=== PATIENT | male | born 1955 | race Caucasian/White ===

== ENCOUNTER 2018-01-08 05:11 | Inpatient (IN) | payer OTHER ==
[2017-12-16 13:07] VITALS: BMI 37.0
--- NOTE | 2017-12-23 09:28 | PAT Medication Instructions ---
Service Date Dec 23, 2017. Current Home Medication List Acetaminophen (Tylenol), 1,000 MG PO UD PRN for Pain Aspirin (Aspirin Ec), 81 MG PO QAM Lisinopril (Prinivil), 20 MG PO QAM Lovastatin (Mevacor), HS Metformin Hcl (Glucophage), 500 MG PO BIDM Nabumetone (Nabumetone), 1 TAB PO BID PRN for Pain Omeprazole Magnesium (Prilosec Otc), 40 MG PO QAM Medication Instructions For Your Scheduled Surgery -Check with your surgeon for instructions for: Nabumetone (Nabumetone), 1 TAB PO BID PRN for Pain - Hold the following medications the morning of surgery: Lisinopril (Prinivil), 20 MG PO QAM Metformin Hcl (Glucophage), 500 MG PO BIDM - Take the following medications the morning of surgery with a sip of water: Acetaminophen (Tylenol), 1,000 MG PO UD PRN for Pain (if needed, may be taken up to four hours before surgery) Aspirin (Aspirin Ec), 81 MG PO QAM Omeprazole Magnesium (Prilosec Otc), 40 MG PO QAM - Take the following medications as scheduled the night before surgery: Acetaminophen (Tylenol), 1,000 MG PO UD PRN for Pain (if needed) Lovastatin (Mevacor), HS Metformin Hcl (Glucophage), 500 MG PO BIDM If you have any questions please call us at [phone] or [phone] or [phone]
--- NOTE | 2018-01-07 14:18 | HISTORY & PHYSICAL EXAMINATION ---
DATE OF ADMISSION: 01/08/2018 CHIEF COMPLAINT: Right knee pain. HISTORY OF PRESENT ILLNESS: The patient is a 62-year-old male with known osteoarthritis about his right knee. He limits his anti-inflammatory use due to history of type 2 diabetes, due to his kidney function. He has progressive pain and disability with activities of daily living including pain with prolonged weightbearing and standing activities. He has difficulty with any kneeling, bending, or squatting activities. Due to ongoing pain and disability, he now desires to proceed with right total knee arthroplasty. PAST MEDICAL HISTORY: Hypertension, hypercholesterolemia, type 2 diabetes, acid reflux, hiatal hernia, obesity. PAST SURGICAL HISTORY: Back surgery, tonsillectomy. MEDICATIONS: Nabumetone 500 mg twice daily, metformin 500 mg twice daily, lisinopril 10 mg daily, Prilosec OTC 20 mg daily, aspirin 81 mg daily. ALLERGIES: No known drug allergies. SOCIAL HISTORY AND REVIEW OF SYSTEMS: Noncontributory. PHYSICAL EXAMINATION: GENERAL: Well-nourished, well-developed male who appears his stated age. HEENT: Normocephalic, atraumatic, extraocular movements intact, oropharynx pink and moist. NECK: Supple without adenopathy. LUNGS: Clear to auscultation bilaterally. HEART: Regular rate and rhythm. ABDOMEN: Soft, nontender, nondistended, obese. EXTREMITIES: The upper extremity within normal limits. The right knee is neutrally aligned. His range of motion is from 0 to 125 degrees. He has pain primarily about the medial compartment. X-RAYS: X-rays were reviewed. He has a slight varus aligned knee. He has bone on bone arthritis of the medial compartment with near complete loss of the joint space. ASSESSMENT: Right knee degenerative joint disease. PLAN: Risks versus benefits were discussed, consent was obtained. The patient's primary care physician is Dr. De La Cruz. We will proceed with right total knee arthroplasty as indicated.
[2018-01-08] VITALS (8 sets, daily range): BP systolic 136–162; BP diastolic 74–85; PULSE 63–82; TEMP 36.8; O2SAT 91–98; Ht 177.8 cm; Wt 118.2 kg
[~2018-01-08] VITALS: Ht 177.8 cm; Wt 118.2 kg
[~2018-01-08 05:11] MED LIST: ACET-1256 PO; ASPI81TA28 PO; GLC/500 PO; LISI20TA3 PO; LOVA40TA43; OMEP20TA14 PO; RLF500 PO
[2018-01-08] MEDS ORDERED: GABAPENTIN 300 MG CAP PO SCH (06:00)
[2018-01-08] MEDS ORDERED: ACETAMINOPHEN 500 MG TAB PO SCH (06:00)
[2018-01-08] MEDS ORDERED: FAMOTIDINE 20 MG TAB PO SCH (06:00)
[2018-01-08] MEDS ORDERED: ROPIVACAINE 5MG/ML 30 ML 150 MG, BUPIVACAINE 0.5% MPF INJ 30 ML, EpINEphrine HCL INJ 0.... INFIL SCH ×8 (06:00)
[2018-01-08] MEDS ORDERED: CeleBREX 200 MG CAP PO SCH (06:00)
[2018-01-08] MEDS ORDERED: DEXAMETHASONE 4 MG TAB PO SCH (06:00)
[2018-01-08] MEDS ORDERED: LACTATED RINGER'S 1000ML 1,000 ML IV SCH (06:00)
[2018-01-08] MEDS ORDERED: CEFAZOLIN 2000MG IV PUSH 15 ML IV SCH (06:00)
[2018-01-08] MEDS ORDERED: LACTATED RINGER'S 1000ML 500 ML IV SCH (06:00)
[2018-01-08] MEDS ORDERED: METOCLOPRAMIDE HCL 10 MG TAB PO SCH (06:00)
[2018-01-08] MEDS: TRANEXAMIC ACID INJ 1,000 MG x 2 Bags IV SCH ×4 (06:30→07:30)
[2018-01-08] MEDS ORDERED: BUPIVACAINE 0.5 % 5 MG/1 ML PF 10ML VIAL ONE (06:33)
[2018-01-08] MEDS ORDERED: ROPIVACAINE 0.5% 5 MG/ML 30 ML VIAL ONE (06:33)
[2018-01-08] MEDS ORDERED: PHENYLEPHRINE 100MCG/ML 5ML SYR IV PRN (06:45)
[2018-01-08] MEDS ORDERED: FENTANYL CITRATE INJ 50 MCG/1 ML 2 ML VIAL IV PRN (06:45)
[2018-01-08] MEDS ORDERED: EpHEDrine SULFATE INJ 50 MG/ML AMP IV PRN (06:45)
[2018-01-08] MEDS ORDERED: ATROPINE SULFATE 0.1 MG/ML 5ML SYR IV PRN (06:45)
[2018-01-08] MEDS ORDERED: HYDROmorphone INJ 1 MG/ML SYR IV PRN (06:45)
[2018-01-08] MEDS ORDERED: ONDANSETRON INJ 2 MG/ML 2 ML VIAL IV PRN (06:45)
[2018-01-08] MEDS ORDERED: PROMETHAZINE HCL INJ 12.5 MG in SODIUM CHLORIDE 0.9% 50ML 50 ML IV PRN (06:45)
[2018-01-08] MEDS ORDERED: ORTHO JOINT ANESTHETIC ONE (07:00)
[2018-01-08] MEDS ORDERED: POVIDONE-IODINE OP SOLN 30 ML BTL ONE (07:00)
[2018-01-08] MEDS ORDERED: BACITRACIN 50000 UNIT VIAL ONE (07:00)
[2018-01-08] MEDS ORDERED: MIDAZOLAM HCL 1 MG/ML 2ML VIAL ONE ×2 (07:03)
[2018-01-08] MEDS ORDERED: LIDOCAINE HCL 2% 2 ML VIAL (20MG/ML) ONE (07:03)
[2018-01-08] MEDS ORDERED: PROPOFOL IV EMULSION 10 MG/ML 20 ML VIAL ONE (07:03)
--- NOTE | 2018-01-08 07:12 | History & Physical Bridge Note ---
H&P Re-Evaluation Bridge Note: I have examined the patient, reviewed the History & Physical and in the interval since the performance of the History & Physical I have noted the following changes of clinical significance: No changes noted
[2018-01-08] MEDS ORDERED: FENTANYL CITRATE INJ 50 MCG/1 ML 2 ML VIAL ONE ×3 (08:03→08:49)
[2018-01-08] MEDS ORDERED: DEXAMETHASONE SOD INJ 4 MG/ML VIAL ONE (08:28)
[2018-01-08] MEDS ORDERED: CEFAZOLIN SOD 1 GM VIAL ONE (08:28)
[2018-01-08] MEDS ORDERED: ONDANSETRON INJ 2 MG/ML 2 ML VIAL ONE (08:28)
[2018-01-08] MEDS ORDERED: SODIUM CHLORIDE 0.9% INJ 10 ML VIAL ONE (08:28)
--- NOTE | 2018-01-08 09:04 | [facility] Post Operative Brief Note ---
Immediate Operative Summary Operative Date Jan 08, 2018. Pre-Operative Diagnosis Right knee degenerative joint disease Post-Operative Diagnosis Right knee degenerative joint disease Procedure(s) Performed Right total knee arthroplasty Surgeon Dr. Pearce Web Support Engineer Surgeon(s) Clement Escalante PA-C Estimated Blood Loss 10cc Findings Consistent with Post-Op Diagnosis Specimens A. Right knee bone and tissue Anesthesia Type MAC Spinal Regional Complication(s) none Disposition Accompanied Pt To Recover: no Overlapping Procedure I was present for: the critical portions of procedure. I was immediately available: during the entire case
[2018-01-08] MEDS: SODIUM CHLORIDE 0.9% 1000ML 1,000 ML IV SCH ×2 (09:44→21:36)
[2018-01-08] MEDS ORDERED: MAGNESIUM HYDROXIDE SUSP 30 ML UDC PO PRN (09:45)
[2018-01-08] MEDS ORDERED: ALUMINUM/MAGNESIUM/SIMETH (MAALOX MAX) 30 ML UDC PO PRN (09:45)
[2018-01-08] MEDS ORDERED: BISACODYL 10 MG SUPP PR PRN (09:45)
[2018-01-08] MEDS ORDERED: MoRPHine SULFATE 2 MG/ML CARP IV PRN (09:45)
[2018-01-08] MEDS ORDERED: OXYCODONE HCL IR 5 MG TAB (IMMEDIATE RELEASE) PO PRN (09:45)
[2018-01-08] MEDS ORDERED: TRAMADOL HCL 50 MG TAB PO PRN (09:45)
--- NOTE | 2018-01-08 10:12 | DIAGNOSTIC IMAGING REPORT ---
R KNEE 1 OR 2 VIEWS ROUTINE HISTORY: 62 years-old Male AP/LATERAL IN PACU RIGHT KNEE right knee total joint arthroplasty. Degenerative joint disease COMPARISON: Knee radiographs 10/11/2009 TECHNIQUE: 2 views of the right knee FINDINGS: Postoperative changes from right knee total joint arthroplasty. Alignment is satisfactory. Anterior midline skin hari are noted. No acute fracture, dislocation or opaque foreign body. Expected postsurgical soft tissue swelling and deep tissue air. Peripheral arterial calcifications are noted. IMPRESSION: Right knee total joint arthroplasty with satisfactory alignment. The above report was generated using voice recognition software. It may contain grammatical, syntax or spelling errors. Electronically signed by: Sammy Bailey M.D. 01/08/2018 10:10 AM Dictated Date/Time: 01/08/2018 10:08 AM
--- NOTE | 2018-01-08 10:21 | Anesthesiology Progress Note ---
Anesthesia Post Op Note Date & Time Jan 08, 2018 at 10:21 Vital Signs Pain Intensity: 0 Vital Signs Past 12 Hours Date Time Temp Pulse Resp B/P (MAP) Pulse Ox O2 Delivery O2 Flow Rate FiO2 01/08/18 10:10 76 18 157/85 93 Nasal Cannula 4 01/08/18 10:00 75 18 162/89 93 Oxymask 5 01/08/18 09:50 83 18 148/94 94 Oxymask 5 01/08/18 09:43 36.1 91 20 159/89 94 Oxymask 10 01/08/18 05:49 36.8 75 20 152/85 94 Room Air Notes Mental Status: alert / awake / arousable, participated in evaluation Pt Amnestic to Procedure: Yes Nausea / Vomiting: adequately controlled Pain: adequately controlled Airway Patency, RR, SpO2: stable & adequate BP & HR: stable & adequate Hydration State: stable & adequate Anesthetic Complications: no major complications apparent
[2018-01-08] MEDS ORDERED: DEXTROSE 50% 50 ML SYR IV PRN (11:30)
[2018-01-08] MEDS ORDERED: GLUCAGON FOR INJ 1 MG VIAL IM PRN (11:30)
[2018-01-08] MEDS ORDERED: CARBOHYDRATES FOR HYPOGLYCEMIA PO PRN (11:30)
[2018-01-08] MEDS ORDERED: GLUCOSE 40% GEL 15 GM TUBE PO PRN (11:30)
[2018-01-08] MEDS ORDERED: GLUCOSE 10 TABS/TUBE PO PRN (11:30)
--- NOTE | 2018-01-08 12:15 | OPERATIVE REPORT ---
DATE OF OPERATION: 01/08/2018 PREOPERATIVE DIAGNOSIS: Osteoarthritis, right knee. POSTOPERATIVE DIAGNOSIS: Osteoarthritis, right knee. PROCEDURE: Right total knee arthroplasty. SURGEON: Dr. Pearce. ARCH SUPPORT TECHNICIAN: AMAURI Ruff ANESTHESIA: Spinal. COMPLICATIONS: None. IMPLANTS USED: Femoral size 5, tibia size 5, tibial poly 9, patella size 39. OPERATION AND FINDINGS: Following induction of spinal anesthesia, the patient's right leg was prepped and draped in the usual sterile manner. Limb was exsanguinated with an Esmarch bandage and tourniquet was inflated to 350 mmHg. A longitudinal incision was made anteriorly. Subcutaneous tissue was sharply dissected. Electrocautery was used for hemostasis. Prepatellar bursa was incised and median parapatellar incision was performed. Patella was everted and the knee was flexed. Fat pad was removed to aid in visualization and the anterior and posterior cruciate ligaments were removed. The medial face of the tibia was cleared of soft tissue first with a Bovie and a Alfaro elevator. This tissue was retracted posteriorly using a blunt Hohmann. A Lou retractor was used to expose the synovium above on the anterior aspect of the femur and this was removed down to bone. The PSI guide was placed on the distal femur and two pins were placed anteriorly and kept in position and two additional pins were placed distally and removed. The distal femoral cutting block was placed in position and the distal femoral cut was used in the +0 setting. Next, the cutting block was removed and the femoral size 5 block was placed in the distal end of the femur. Care was taken to ensure appropriate external rotation and feeler gauge was used to ensure no notching would occur. The femoral block was centered on the distal femur and in the medial and lateral direction and was fixed using two bone screws. The gold pins were then removed. The oscillating saw was used to create the bone cuts and the distal femoral cutting block was removed and the reciprocating saw was used to further trim the femoral cuts as well as a deep in the area for the trochlear groove. Next, posterior condyle remnants were removed. Following this, a meniscal clamp and knife were utilized to remove the anterior portion of both medial and lateral meniscus. The proximal tibia PSI guide was placed into position and the proximal tibial cutting guide was screwed into position. The extra medullary alignment guide was utilized to ensure appropriate alignment. The proximal tibia was cut and the proximal tibial cutting block was removed and this bone fragment was removed. The appropriate guide was used to perform the notch cut on the distal femur and a lamina aircraft tool maker and a cochlear knife were utilized to finish both medial and lateral meniscectomies to remove any remnants of the posterior or anterior cruciate ligaments. Following this, the distal femoral component was impacted into position and blunt Sang was used to sublux the tibia anteriorly. The proximal tibia was sized and a size 5 tibial tray was chosen as the size to be used. This was put into position and appropriate external rotation and a double check with extramedullary alignment guide was performed. The canal for the tibial stem was prepared first with a 17 mm drill and then the punch and a mallet and the trial tibial poly was placed. A tibial poly 9 was chosen the size to be used. It was brought to extension and the patella was prepared with the patellar reamer. A patella size 39 component was chosen the size to be used. The trial component was placed and knee was taken through a full range of motion and there was found to be no lateral subluxation of the tibia. No lateral release was required. The trials were all removed. The final components were obtained and assembled. Cement was mixed. The knee was thoroughly irrigated and the ortho mix was injected about the knee joint. The final components were cemented into position. After thoroughly suctioning and drying the bone ends, all excess cement was removed. The knee was held in extension while the cement hardened. The wound was irrigated and closed over a Hemovac drain. #1 Vicryl was used to close the extensor mechanism. Subcutaneous tissues closed using 0 Dexon. Skin was closed with hari. Sterile dressing of Adaptic, 4 x 4's, sterile Webril, and Tee was applied. The patient tolerated the procedure well. Due to the complex nature of the procedure, the entire surgery was performed with the operational assistance of Clement Escalante PA-C. The grants and contracts assistant, under direct supervision, was involved in the actual performance of all aspects of the surgical procedure including hemostasis, tissue retraction and incision, instrument management, patient positioning, and wound closure. DISPOSITION: Recovery room, stable. I attest to the content of the Intraoperative Record and any orders documented therein. Any exception s are noted below.
[2018-01-08] MEDS: FERROUS GLUCONATE 324 MG TAB PO SCH ×2 (12:41→17:36)
[2018-01-08] MEDS: INSULIN ASPART 100 UNITS/ML 3 ML PEN SC SCH ×3 (12:43→21:38)
[2018-01-08] MEDS: ACETAMINOPHEN 500 MG TAB PO SCH ×2 (13:41→21:40)
[2018-01-08] MEDS: CEFAZOLIN IV 2,000 MG in SYRINGE 0 ML IV SCH (15:52)
[2018-01-08] MEDS: CeleBREX 200 MG CAP PO SCH (20:16)
[2018-01-08] MEDS: DOCUSATE SODIUM 100 MG CAP PO SCH (20:16)
[2018-01-08] MEDS: SENNA 8.6 MG TAB PO SCH (20:16)
[2018-01-08] MEDS: ASPIRIN 81 MG ECTAB PO SCH (20:16)
[2018-01-09] MEDS: CEFAZOLIN IV 2,000 MG in SYRINGE 0 ML IV SCH (00:12)
[2018-01-09 02:50] VITALS: BP 125/65; PULSE 76; TEMP 37.1; O2SAT 97
[2018-01-09] MEDS: ACETAMINOPHEN 500 MG TAB PO SCH ×3 (05:21→21:33)
[2018-01-09] MEDS: SODIUM CHLORIDE 0.9% 1000ML 1,000 ML IV SCH (05:22)
[2018-01-09 06:24] LABS: HEMATOCRIT 36.8 % (42-52); HEMOGLOBIN 12.5 g/dL (14.0-18.0); MEAN CELL VOLUME 86.8 fL (80-100); MEAN CORPUSCULAR HEMOGLOBIN 29.5 pg (25-34); MEAN PLATELET VOLUME 10.1 fL (7.4-10.4); PLATELET COUNT 243 K/uL (130-400); RED CELL DISTRIBUTION WIDTH CV 12.7 % (11.5-14.5); RED CELL DISTRIBUTION WIDTH SD 40.8 fL (36.4-46.3); WHITE BLOOD COUNT 21.62 K/uL (4.8-10.8)
[2018-01-09 06:59] LABS: CALCIUM 8.1 mg/dl (8.5-10.1); POTASSIUM 4.4 mmol/L (3.5-5.1)
[2018-01-09 07:21] VITALS: BP 153/90; PULSE 73; TEMP 36.6; O2SAT 96
--- NOTE | 2018-01-09 07:47 | Anesthesiology Progress Note ---
Anesthesia Post Op Note Date & Time Jan 09, 2018 at 07:47 Vital Signs Pain Intensity: 0.0 Vital Signs Past 12 Hours Date Time Temp Pulse Resp B/P (MAP) Pulse Ox O2 Delivery O2 Flow Rate FiO2 01/09/18 07:21 36.6 73 18 153/90 (111) 96 Room Air 01/09/18 02:50 37.1 76 16 125/65 (85) 97 Room Air 01/08/18 23:15 Room Air 01/08/18 22:48 36.8 82 17 147/76 (99) 91 Room Air Notes Mental Status: alert / awake / arousable, participated in evaluation Pt Amnestic to Procedure: Yes Nausea / Vomiting: adequately controlled Pain: adequately controlled Airway Patency, RR, SpO2: stable & adequate BP & HR: stable & adequate Hydration State: stable & adequate Anesthetic Complications: no major complications apparent
--- NOTE | 2018-01-09 07:48 | Orthopedic Progress Note ---
Orthopedic Progress Note Date of Service Jan 09, 2018. Subjective Post OP Day: 1 Reports: feeling well Objective N/V intact, dressing C/D/I (Hemovac in place), toes mobile Date Time Temp Pulse Resp B/P (MAP) Pulse Ox O2 Delivery O2 Flow Rate FiO2 01/09/18 07:21 36.6 73 18 153/90 (111) 96 Room Air 01/09/18 02:50 37.1 76 16 125/65 (85) 97 Room Air 01/08/18 23:15 Room Air 01/08/18 22:48 36.8 82 17 147/76 (99) 91 Room Air 01/08/18 19:01 36.8 69 18 136/78 (97) 98 Room Air 01/08/18 15:20 Nasal Cannula 2.0 01/08/18 13:30 66 16 144/75 (98) 95 01/08/18 12:29 73 18 145/74 (97) 93 01/08/18 11:30 70 18 158/75 (102) 95 01/08/18 11:05 63 18 162/76 (104) 93 01/08/18 10:30 93 Nasal Cannula 2.0 01/08/18 10:30 36.8 72 18 138/76 (96) 93 Nasal Cannula 2.0 01/08/18 10:30 93 Nasal Cannula 2.0 01/08/18 10:20 36.3 72 18 164/80 93 Nasal Cannula 4 01/08/18 10:10 76 18 157/85 93 Nasal Cannula 4 01/08/18 10:00 75 18 162/89 93 Oxymask 5 01/08/18 09:50 83 18 148/94 94 Oxymask 5 01/08/18 09:43 36.1 91 20 159/89 94 Oxymask 10 Laboratory Results 24 Hours: Test 01/09/18 06:13 Hematocrit 36.8 % Hemoglobin 12.5 g/dL Assessment & Plan Assessment: 62 yo male stable POD #1 s/p right TKA Plan: 1. Med management 2. DVT prophylaxis- ASA, SCDs 3. PT/OT 4. D/C planning- home w/ HH
--- NOTE | 2018-01-09 08:14 | Discharge Instructions ---
Discharge Instructions Date of Service Jan 09, 2018. Admission Reason for Admission: Right Knee Osteoarthritis Discharge Discharge Diagnosis / Problem: Right knee arthritis Discharge Goals Goal(s): Decrease discomfort, Improve function Activity Recommendations Activity Limitations: as noted below Weightbearing Status: Right weightbearing (as tolerated) . Instructions / Follow-Up Instructions / Follow-Up ACTIVITY RECOMMENDATIONS: SELF CARE INSTRUCTIONS AFTER TOTAL KNEE REPLACEMENT A. You may need to continue a physical therapy program after discharge from the hospital. There are several options available to you. Your doctor will assist you in selecting the best one for you. 1. An out-patient facility 2 to 3 times a week for therapy or home therapy. 2. Continue working on all exercises taught to you in the hospital. Your goals should be to increase bending of your knee to 90 degrees and beyond and to fully straighten your knee. B. You may progress at your own pace from walking with a walker or crutches to a cane; then to no assistive devices. C. Make walking a part of your daily routine. Be up as much as comfortable with rest periods throughout the day. Rest with leg elevation is very important. Use the ice wrap frequently for the first 3-4 weeks. D. There are no restrictions on activities. You may ride in a car, shop, participate in director home and all social activities. E. Wear the long elastic stockings (MARISA hose) 20 hours a day for 2 weeks after surgery. They can be removed several times a day for laundering and for a bath. F. You may shower, no tub baths until cleared by your doctor. SPECIAL CARE INSTRUCTIONS: VERY IMPORTANT TO READ AND REVIEW A. There are a few signs you need to watch for after you are home. Call [facility] if you notice any of the followin. Increased severe knee pain. Some pain is expected especially when you exercise. 2. Increased swelling in your leg or knee; pain or swelling of the calf muscle in either lower leg. 3. Any fluid drainage from the incision. 4. Shortness of breath or chest pain. B. Please call [facility] at if you have any concerns or questions about your operation or recovery. The doctor or his nurse will return your call promptly. C. You must take antibiotics before dental work, bladder, bowel or other surgery. Your doctor will provide you with a permanent care to carry describing this precaution. IMPORTANT: * REMEMBER TO TAKE ASPIRIN, 81 MG, TWICE DAILY FOR 4 WEEKS UNLESS OTHERWISE DIRECTED. THIS IS YOUR BLOOD THINNER. * HIGH RISK PATIENTS MAY BE PRESCRIBED A STRONGER BLOOD THINNER. THIS WILL BE PROVIDED AT DISCHARGE. * CALL IF INCREASED PAIN, REDNESS, DRAINAGE OR FEVER GREATER THAT 101. * WEAR MARISA HOSE 20 HOURS PER DAY FOR 2 WEEKS. * YOU MAY HAVE A LARGE BAND-AID LIKE DRESSING (SILVERON). THIS WILL REMAIN ON YOUR INCISION FOR 7 DAYS, THEN CAN BE REMOVED. IF INCISION IS LEAKING THROUGH DRESSING, CALL THE OFFICE . Zip Skin Closure You have a Zipline Closure System. As noted below, this keeps your incision closed. Change the dressing daily. Keep the wound covered with a dressing as it has the potential to snag on your clothing. The Zipline will remain on for a total of 2 weeks. Do not remove it! You will be given instructions by nursing staff at the time of discharge to care for your Zip Closure System. This devices uses plastic straps to keep your incision closed and protected throughout your recovery. If you have any questions please refer to these instructions first. FOLLOW UP VISIT: If appointment is not already scheduled: Please call [facility] to make a follow-up appointment for 2 weeks after your surgery at . Current Hospital Diet Patient's current hospital diet: Diabetes Type 2 Diet Discharge Diet Recommended Diet: Diabetes Type 2 Diet Procedures Procedures Performed: Right total knee arthroplasty Pending Studies Studies pending at discharge: no Medical Emergencies . Who to Call and When: Medical Emergencies: If at any time you feel your situation is an emergency, please call 911 immediately. . Non-Emergent Contact Non-Emergency issues call your: Surgeon Call Non-Emergent contact if: temperature is above 101.5, your pain is not controlled, wound has increased drainage, wound has increased redness . "Provider Documentation" section prepared by Shad Villegas PA-C. . [place] Drug Monitoring Program Search Results: patient reviewed within database, no issues identified
[2018-01-09] MEDS: FERROUS GLUCONATE 324 MG TAB PO SCH ×3 (08:33→18:07)
[2018-01-09] MEDS: ASPIRIN 81 MG ECTAB PO SCH ×2 (08:33→20:13)
[2018-01-09] MEDS: CeleBREX 200 MG CAP PO SCH ×2 (08:33→20:12)
[2018-01-09] MEDS: DOCUSATE SODIUM 100 MG CAP PO SCH ×2 (08:33→20:11)
[2018-01-09] MEDS: MULTIVITAMIN TAB PO SCH (08:34)
[2018-01-09] MEDS: PANTOprazole SOD 40 MG TAB PO SCH (08:34)
[2018-01-09] MEDS: LISINOPRIL 20 MG TAB PO SCH (08:34)
[2018-01-09] MEDS: INSULIN ASPART 100 UNITS/ML 3 ML PEN SC SCH ×4 (08:49→21:36)
[2018-01-09 11:15] VITALS: BP 154/77; PULSE 78; TEMP 36.5; O2SAT 93
[2018-01-09 15:34] VITALS: BP 133/74; PULSE 73; TEMP 37; O2SAT 96
[2018-01-09] MEDS: METFORMIN HCL 500 MG TAB PO SCH (18:07)
[2018-01-09] MEDS: SENNA 8.6 MG TAB PO SCH (20:12)
[2018-01-10 00:05] VITALS: BP 133/68; PULSE 82; TEMP 36.8; O2SAT 97
[2018-01-10] MEDS: ACETAMINOPHEN 500 MG TAB PO SCH (05:46)
[2018-01-10 06:39] VITALS: BP 119/72; PULSE 76; TEMP 37; O2SAT 95
[2018-01-10 07:45] VITALS: O2SAT 95
[2018-01-10 07:49] VITALS: BP 119/72; PULSE 76; TEMP 37; O2SAT 95
[2018-01-10] MEDS: INSULIN ASPART 100 UNITS/ML 3 ML PEN SC SCH (08:02)
[2018-01-10] MEDS: LISINOPRIL 20 MG TAB PO SCH (08:03)
[2018-01-10] MEDS: FERROUS GLUCONATE 324 MG TAB PO SCH (08:03)
[2018-01-10] MEDS: MULTIVITAMIN TAB PO SCH (08:03)
[2018-01-10] MEDS: PANTOprazole SOD 40 MG TAB PO SCH (08:03)
[2018-01-10] MEDS: ASPIRIN 81 MG ECTAB PO SCH (08:04)
[2018-01-10] MEDS: CeleBREX 200 MG CAP PO SCH (08:04)
[2018-01-10] MEDS: METFORMIN HCL 500 MG TAB PO SCH (08:04)
[2018-01-10] MEDS: DOCUSATE SODIUM 100 MG CAP PO SCH (08:07)
--- NOTE | 2018-01-10 08:38 | Orthopedic Progress Note ---
Orthopedic Progress Note Date of Service Jan 10, 2018. Subjective Post OP Day: 2 Reports: feeling well Objective N/V intact, dressing C/D/I, toes mobile Date Time Temp Pulse Resp B/P (MAP) Pulse Ox O2 Delivery O2 Flow Rate FiO2 01/10/18 07:49 37.0 76 18 95 Room Air 01/10/18 07:45 95 Room Air 01/10/18 06:39 37.0 76 18 119/72 (88) 95 Room Air 01/10/18 00:05 36.8 82 18 133/68 (89) 97 Room Air 01/09/18 23:30 Room Air 01/09/18 15:34 37.0 73 16 133/74 (93) 96 Room Air 01/09/18 14:56 Room Air 01/09/18 11:15 36.5 78 18 154/77 (102) 93 01/09/18 08:43 Room Air Assessment & Plan Assessment: 62 yo male stable POD #2 s/p right TKA Plan: 1. Med management 2. DVT prophylaxis- ASA, SCDs 3. PT/OT 4. D/C planning- home w/ HH
[2018-01-10] MEDS ORDERED: CLB200 PO (08:40)
[2018-01-10] MEDS ORDERED: ACET-24 PO (08:40)
[2018-01-10] MEDS ORDERED: ASPI-461 PO (08:40)
[2018-01-10] MEDS ORDERED: RXC5 PO (08:41)
--- NOTE | 2018-01-13 11:59 | DISCHARGE SUMMARY ---
DISCHARGE DIAGNOSIS: Degenerative joint disease, right knee. SECONDARY DIAGNOSES: Hypertension, hypercholesterolemia, diabetes mellitus type 2, gastroesophageal reflux disease, hiatal hernia, and obesity. CONSULTS: None. COMPLICATIONS: None. PROCEDURES: Right total knee arthroplasty performed by Dr. Pearce on 01/08/2018. BRIEF HISTORY: As dictated in the history and physical. HOSPITAL SUMMARY: The patient was admitted on the above-noted date and had the above-noted surgery performed which he tolerated well. On the first postoperative day, he was feeling well and dressings were clean, dry and intact. Toes were mobile. Neurovascular intact and vital signs are stable. He is afebrile. Hemoglobin was 12.5 and he was started on physical therapy protocol and continued on DVT prophylaxis and pain management. By his second postoperative day, he was feeling well and was continued to progress in PT. Dressings were clean, dry and intact. Toes were mobile and vital signs remaining stable. He was doing well and was felt he could be discharged to home with home health services. For further review, please see chart. LAB AND X-RAY DATA: As per chart. DISCHARGE INSTRUCTIONS: The patient was discharged home in satisfactory condition on 01/10/2018. DIET: Diabetic. ACTIVITY: Weightbearing as tolerated, right lower extremity. Follow TKA instruction sheets and special care instructions as noted. Follow up with Dr. Pearce in 2 weeks. The patient to call for appointment if one has not been made for you. DISCHARGE MEDICATIONS: Acetaminophen 1000 mg p.o. q. 8 hours for 14 days, aspirin 81 mg p.o. b.i.d. for 28 days, Celebrex 200 mg p.o. b.i.d. for 30 days, oxycodone 5-10 mg p.o. q. 6 hours p.r.n. pain. Resume home meds as listed. Stop taking original Tylenol dosage, stop taking nabumetone, and after 28 days, resume once daily dosing of your aspirin.
== END 2018-01-10 10:36 | disposition home health service (06) | DRG 470 ==
LOC: C.ACU 05:11 → C.3E 07:00 → ENRESERV 10:11
PROC: 0SRC0J9 Replacement of Right Knee Joint with Synthetic Substitute, Cemented, Open Approach (ICD-10-PCS; principal; 2018-01-08 08:00)
DX: M17.11 Unilateral primary osteoarthritis, right knee (principal); E11.9 Type 2 diabetes mellitus without complications; I10 Essential (primary) hypertension; E78.5 Hyperlipidemia, unspecified; K21.9 Gastro-esophageal reflux disease without esophagitis; E66.9 Obesity, unspecified; Z68.37 Body mass index [BMI] 37.0-37.9, adult

== ENCOUNTER 2021-01-05 10:44 | Inpatient (IN) ==
--- NOTE | 2020-12-11 15:43 | PAT Medication Instructions ---
Medication Instructions Date of Service December 11, 2020 Home Medications aspirin [Aspir-81] 81 mg PO QAM atorvastatin 80 mg PO PM lisinopril 20 mg PO QAM metformin 500 mg PO BID nabumetone [Relafen] 500 mg PO BID omeprazole 20 mg PO BID ASK your surgeon for instructions nabumetone [Relafen] 500 mg PO BID DO NOT take the morning of surgery lisinopril 20 mg PO QAM metformin 500 mg PO BID Take morning of surgery With a small sip of water, OTHERWISE NOTHING TO EAT OR DRINK AFTER MIDNIGHT: aspirin [Aspir-81] 81 mg PO QAM omeprazole 20 mg PO BID Take evening before surgery atorvastatin 80 mg PO PM metformin 500 mg PO BID omeprazole 20 mg PO BID Other Notes If you have any questions please call us at [phone] or [phone] or [phone] or [phone]
--- NOTE | 2020-12-12 15:07 | Anesthesiology Consultation ---
Date of Service December 12, 2020 Assessment & Plan (1) Encounter for pre-operative examination: - COVID screening: Per assessment on 12/12: Travel screen negative, no known COVID-19 positive contacts or current COVID-19 related symptoms. Patient vaccinated. Surgeon arranging preop COVID testing. Awaiting results. - Check BSG AM DOS - S/P Right TKA (01/08/18): unable to get SAB d/t hardware around spine despite multiple attempts (attempted spinal at L3-L4, L4-L5, median and paramedian >unable to pass through hardware, pt s/p fusion T12-L5) > LMA#5 x1 attempt, atraumatic, good seal at [facility] Chart Review Chart Review: Acceptable Risk for Surgery and Patient seen in Pre Admission Testing Teaching & Discussion Pre-Anesthesia Teaching/Discussion Notes: Instructed NPO after midnight before surgery,except medications with 15 cc of water. Medication instructions provided according to the PAT guidelines. History Surgery Operation Date: 01/05/21 11:55 Proposed Procedures p Left Total Knee Arthroplasty - Greg Lazo DO Height/Weight Height: 5 ft 8 in Weight: 118.9 kg Allergies Allergy/AdvReac Type Severity Reaction Status Date / Time No Known Drug Allergies Allergy Unknown none Verified 12/11/20 09:45 Medications Home Medications Medication Instructions Recorded Confirmed Last Taken aspirin [Aspir-81] 81 mg PO QAM 12/11/20 12/11/20 Unknown atorvastatin 80 mg PO PM 12/11/20 12/11/20 Unknown lisinopril 20 mg PO QAM 12/11/20 12/11/20 Unknown metformin 500 mg PO BID 12/11/20 12/11/20 Unknown nabumetone [Relafen] 500 mg PO BID 12/11/20 12/11/20 Unknown omeprazole 20 mg PO BID 12/11/20 12/11/20 Unknown Past Medical History Medical History Diabetes mellitus, type 2 NIDDM GERD (gastroesophageal reflux disease) controlled Hyperlipidemia Hypertension Obesity Osteoarthritis Exercise / Class Metabolic Activity II 4-5 Yardwork/Stairs/Walk up hill Past Surgical History Surgical History History of lumbar fusion History of total right knee replacement Right TKA (01/08/18): unable to get SAB d/t hardware around spine despite multiple attempts (attempted spinal at L3-L4, L4-L5, median and paramedian >unable to pass through hardware, pt s/p fusion T12-L5) > LMA#5 x1 attempt, atraumatic, good seal at [facility] Hx of colonoscopy Hx of esophagogastroduodenoscopy Hx of tonsillectomy Past Anesthesia History No Family Hx of Anesthesia Complications and Other Right TKA (01/08/18): unable to get SAB d/t hardware around spine despite mul tiple attempts (attempted spinal at L3-L4, L4-L5, median and paramedian >unable to pass through hardware, pt s/p fusion T12-L5) > LMA#5 x1 attempt, atraumatic, good seal at [facility] History of PONV No Hx of PONV and Hx of Motion Sickness Social History Smoking Status: Never smoker Do You Dip or Chew Tobacco: No Hx Alcohol Use: No Hx Substance Use: No substance use type: does not use Review of Systems No snoring. Patient denies chest pain, shortness of breath, dyspnea on exertion, fever, chills, cough, wheezing, palpitations. Physical Exam Vital Signs VITALS BP 157/81 P 81 TEMP WNL SP02 94%RA RESP 16 PHYSICAL Full cervical extension range of motion. Full TMJ range of motion. TMD 3.5 finger breaths Mallampati Score 3 Dentition: full dentures upper/lower Lungs: clear throughout to auscultation Cardiac: regular rate and rhythm, no murmurs noted Spine: normal Carotid arteries: negative bruit Extremities: no edema Lab Results Anesthesia Preop Results Results Anesthesia Widget: WBC 9.33 K/uL (4.8-10.8) 12/12/20 Hgb 14.9 g/dL (14.0-18.0) 12/12/20 Hct 43.8 % (42-52) 12/12/20 Plt 240 K/uL (130-400) 12/12/20 Na 141 mmol/L (136-145) 12/12/20 K 4.0 mmol/L (3.5-5.1) 12/12/20 Cl 110 mmol/L (98-107) H 12/12/20 CO2 25 mmol/L (21-32) 12/12/20 BUN 17 mg/dl (7-18) 12/12/20 Creat 0.98 mg/dl (0.6-1.4) 12/12/20 Glucose Level 120 mg/dl (70-99) H 12/12/20 PT 10.2 Seconds (9.0-12.0) 12/12/20 PTT 27.4 Seconds (21.0-31.0) 12/12/20 INR 1.0 (0.9-1.1) 12/12/20 HA1c 6.5 % (4.5-5.6) H 12/12/20 Blood Type B Positive 12/12/20 Antibody Screen NEGATIVE 12/12/20 Testing Electrocardiogram Date: 12/12/20 Normal sinus rhythm at 71 bpm. Inferior infarct (cited on or before 11/23/2017 per gang rider review). Good functional status at PAT visit from same day. Chest X-Ray Date: 12/12/20 FINDINGS: PA and lateral chest radiographs are compared to study dated 12/23/2017. The cardiomediastinal silhouette is unremarkable. There is mild bibasilar atelectasis. The lungs and pleural spaces are otherwise clear. There is no pneumothorax. The bony thorax appears intact. Fusion hardware is noted thoracolumbar junction. Degenerative change and hyperkyphosis is noted in the spine. IMPRESSION: No active disease in the chest.
--- NOTE | 2021-01-03 16:49 | History & Physical Report ---
Date of Service January 03, 2021 Assessment & Plan (1) Osteoarthritis of left knee: Plan: Schedule a left total knee arthroplasty for 01/05/21. All potential risks, benefits, complications, alternatives, and rehab have been discussed with the patient and he wishes to proceed. Plan for aspirin 81 mg twice daily x30 days for postop DVT prophylaxis. History of Present Illness Chief Complaint: Left knee pain Primary Care Provider: Shawn De La Crzu MD This is a patient who been treated conservatively for left knee osteoarthritis for many years. He is failed all conservative management. He had previously had a right total knee arthroplasty with good results. He is currently being set up for a left total knee arthroplasty. Allergies Allergy/AdvReac Type Severity Reaction Status Date / Time No Known Drug Allergies Allergy Unknown none Verified 12/11/20 09:45 Home Medications Medication Instructions Recorded Confirmed Type aspirin 81 mg tablet,delayed 81 mg PO QAM 12/11/20 12/11/20 History release atorvastatin 80 mg tablet 80 mg PO PM 12/11/20 12/11/20 History lisinopril 20 mg tablet 20 mg PO QAM 12/11/20 12/11/20 History metformin 500 mg tablet 500 mg PO BID 12/11/20 12/11/20 History nabumetone 500 mg tablet (Relafen) 500 mg PO BID 12/11/20 12/11/20 History omeprazole 20 mg tablet,delayed 20 mg PO BID 12/11/20 12/11/20 History release Past Med/Surg History Medical History Diabetes mellitus, type 2 NIDDM GERD (gastroesophageal reflux disease) controlled Hyperlipidemia Hypertension Obesity Osteoarthritis Surgical History History of lumbar fusion History of total right knee replacement Right TKA (01/08/18): unable to get SAB d/t hardware around spine despite multiple attempts (attempted spinal at L3-L4, L4-L5, median and paramedian >unable to pass through hardware, pt s/p fusion T12-L5) > LMA#5 x1 attempt, atraumatic, good seal at [facility] Hx of colonoscopy Hx of esophagogastroduodenoscopy Hx of tonsillectomy Social History Smoking Status: Never smoker Second Hand Exposure: No; Hx Alcohol Use: No Hx Substance Use: No Preferred Language: [place] Communication Ability: Effective Information Assurance Manager Required: No Beliefs That Will Affect Care: None Current Living Situation: Spouse Feels Safe at Home: Yes Assistive Devices: Glasses Physical Exam Constitutional: well developed and well nourished; no acute distress ENMT: external ear and nose normal, oropharynx normal Neck: trachea midline, no thyromegaly Respiratory: normal respiratory effort, lungs clear to auscultation Cardiovascular: Rate/Rhythm: regular rate and regular rhythm Gastrointestinal (Abdomen): normal bowel sounds, soft, nontender, no hepatosplenomegaly Musculoskeletal: Knee: + knee ROM with crepitation (Right knee), + joint line tenderness (Right medial lateral joint line) and + Miranda's sign positive (Right); no skin erythema and no ecchymosis Skin: no rashes, warm and dry Trauma: no evidence of skin trauma Neurologic: normal touch/pain/proprioception Psychiatric: A+Ox3, euthymic affect Speech: normal rate/rhythm/volume of speech Lymphatic: no cervical or axillary lymphadenopathy
[~2021-01-05 10:44] MED LIST changes: -ACET-1256 PO; +ACETAMINOPHEN 500 MG TAB PO SCH; -ASPI81TA28 PO; +BUPIVACAINE 0.5 % 5 MG/1 ML PF 10ML VIAL ONE; +CeleBREX 200 MG CAP PO SCH; +FAMOTIDINE 20 MG TAB PO SCH; +GABAPENTIN 300 MG CAP PO SCH; -GLC/500 PO; -LISI20TA3 PO; -LOVA40TA43; +LR 500ML BOLUS, THEN 15ML/HR IV SCH; +METOCLOPRAMIDE HCL 10 MG TABLET PO SCH; -OMEP20TA14 PO; -RLF500 PO; +ROPIVACAINE 0.5% 5 MG/ML 30 ML VIAL ONE; +ROPIVACAINE 0.5% HCL/PF 150 MG, BUPIVACAINE 0.75% MPF 20 ML, EPINEPHrine 30MG/30ML (OR ... INSTIL SCH; +TRANEXAMIC ACID 1,000 MG **IV Intra-op IV SCH; +TRANEXAMIC ACID 1,000 MG **IV Pre-op IV SCH; +ceFAZolin 2000MG 2,000 MG/15 ML SYR IV SCH; +oxyCODONE HCL 10 MG TABCR (OxyCONTIN) PO SCH
--- NOTE | 2021-01-05 11:35 | History & Physical Bridge Note ---
Date of Service January 05, 2021 History & Physical Bridge Note I have examined the patient, reviewed the History & Physical and in the interval since the performance of the History & Physical I have noted the following changes of clinical significance: no changes noted
[2021-01-05] MEDS ORDERED: ATROPINE SULFATE 0.1 MG/ML 10ML SYR IV PRN (12:16)
[2021-01-05] MEDS ORDERED: KETOROLAC 30 MG/ML VIAL IV PRN (12:16)
[2021-01-05] MEDS ORDERED: LABETALOL HCL IV 5 MG/ML 20ML IV PRN (12:16)
[2021-01-05] MEDS ORDERED: ONDANSETRON INJ 2 MG/ML 2 ML VIAL IV PRN ×2 (12:16→16:56)
[2021-01-05] MEDS ORDERED: HYDROmorphone INJ 1 MG/ML SYRINGE IV PRN (12:16)
[2021-01-05] MEDS ORDERED: LIDOCAINE 2% 2 ML VIAL/AMP(20MG/ML) INFIL ONE (12:18)
[2021-01-05] MEDS ORDERED: MIDAZOLAM HCL 1 MG/ML 2ML VIAL ONE (12:18)
[2021-01-05] MEDS ORDERED: fentaNYL citrate 100 MCG/2 ML VIAL ONE ×2 (12:18→15:32)
[2021-01-05] MEDS ORDERED: ONDANSETRON INJ 2 MG/ML 2 ML VIAL ONE (12:18)
[2021-01-05] MEDS ORDERED: PROPOFOL IV EMULSION 10 MG/ML 20 ML VIAL IV ONE (12:18)
[2021-01-05] MEDS ORDERED: SUCCINYLCHOLINE CHLORIDE 20 MG/ML 10 ML VIAL IV ONE (12:18)
[2021-01-05] MEDS ORDERED: ORTHO JOINT ANESTHETIC ONE (12:19)
[2021-01-05] MEDS ORDERED: KETAMINE 50 MG/5 ML SYRINGE ONE (13:06)
[2021-01-05] MEDS ORDERED: HYDROmorphone INJ 2 MG/ML SYR/VIAL ONE (13:37)
[2021-01-05] MEDS ORDERED: LABETALOL HCL IV 5 MG/ML 20ML IV ONE (14:11)
[2021-01-05] MEDS ORDERED: NEOSTIGMINE METHYLSULFATE 1 MG/ML 10ML VIAL ONE (14:35)
[2021-01-05] MEDS ORDERED: ROCURONIUM BROMIDE 10 MG/ML 5 ML VIAL IV ONE (14:35)
[2021-01-05] MEDS ORDERED: GLYCOPYRROLATE 0.2 MG/ML VIAL ONE (14:35)
--- NOTE | 2021-01-05 15:04 | Post Operative Brief Note ---
Immediate Post Op Note v1 Date of Surgery January 05, 2021 Pre & Post Diagnosis Operation Date: 01/05/21 12:45 Pre-Op Diagnosis: Primary Osteoarthritis Knee Left, degenerative joint disease left knee, genu varum, left knee pain Post-Op Diagnosis: Primary Osteoarthritis Knee Left, degenerative joint disease left knee, genu varum, left knee pain I identified the patient and participated in the time-out.: Yes Procedure Operation Date: 01/05/21 12:45 Actual Procedures p Left cemented total Knee Arthroplasty with Mora & Nephew MRI matched components; size 7 femur, size 6 tibia, 9 mm posterior stabilized polyethylene and 38 mm round patella (Left) - Greg Lazo DO Surgeon Greg Lazo DO Artist Consultant Matt Kelly PA-C Estimated Blood Loss 25 Findings Consistent with Post-Op Diagnosis Specimens Bone and tissue left knee Drains Hemovac Drain (Double) Anesthesia Type General Regional Complications none Disposition Accompanied Patient To Recovery: No Overlapping Procedure I was present for: the critical portions of procedure. I was immediately available: during the entire case.
--- NOTE | 2021-01-05 15:26 | Operative Report (OR) ---
DATE OF PROCEDURE: 01/05/2021 PREOPERATIVE DIAGNOSES: 1. Left knee osteoarthritis. 2. Degenerative joint disease, left knee. 3. Left knee pain. 4. Genu varum, left knee. POSTOPERATIVE DIAGNOSES: 1. Left knee osteoarthritis. 2. Degenerative joint disease, left knee. 3. Left knee pain. 4. Genu varum, left knee. PROCEDURE: Left Mora and Nephew cemented total knee arthroplasty with MRI matched components, size 7 femur, size 6 tibia, 9 mm posterior stabilized polyethylene and a 38 mm round patella, left. SURGEON: Greg Lazo DO. DEHYDROGENATION OPERATOR HEAD: Matt Kelly PA-C who was present for patient positioning, sterile prep and drape, management of retractors and instruments. He was present through the critical portions of the case including wound closure, application of sterile dressing and transport of the patient to recovery. ANESTHESIA: General, regional with intraarticular local. SPECIMENS: Bone and tissue, left knee. DRAINS: Hemovac x2. COMPLICATIONS: None. ESTIMATED BLOOD LOSS: 25 mL. PERTINENT HISTORY: This is a 65-year-old gentleman with chronic progressive and worsening left knee pain over the last 2 to 3 years. He attempted and failed conservative management including use of a brace, use of an assistive device, anti-inflammatories, steroid injection, physical therapy, physician-directed home exercises, rest, observation, ice and modification of activities. Radiographs demonstrate medial joint space loss with marginal osteophytes, subchondral sclerosis, and subchondral cysts with a varus deformity. The patient was then scheduled for surgery as indicated. All potential risks, benefits, complications, alternatives, rehab potential for incomplete relief of symptoms, need for further surgery, DVT, PE, , persistent pain, swelling, scarring, weakness, neurovascular injury, wound complications, hardware failure, nonunion, malunion, bone fracture were discussed with the patient. The patient decided to proceed with the procedure as indicated. DESCRIPTION OF PROCEDURE: The patient was taken to the Operating Suite and placed supine on the Operating Room table after the patient had been administered spinal epidural anesthetic and femoral nerve sheath catheter in the preop holding area. The patient was sedated. Proper operative site was identified. The tourniquet was placed high on the left lower extremity. Left lower extremity was then sterilely prepped and draped in the usual fashion. Elevated and exsanguinated with an Esmarch bandage. Tourniquet inflated to 350 mmHg. Next a midline 10-blade scalpel incision was made directly over the middle one-third of the patella extending to the level of the tibial tubercle. The incision was deepened through the subcutaneous tissue and meticulous hemostasis with electrocautery. Full-thickness skin flaps were developed taking care to avoid neurovascular bundles. Next, median parapatellar capsular incision was made 10-blade scalpel after the superior medial corner had been marked with a marking pen for later reapproximation. Next, patella was everted. Soft tissue releases were performed of the knee including along the anterior medial corner to the level of the MCL which was protected and released adjacent to the MCL with Alfaro elevator. Fat pad was resected anteriorly and small half ni portion of tissue was resected at the superior margin of the dermal articular surface. Next, the patella thickness was measured with caliper and held in everted position with Melania. Next, sagittal saw was used to make orthogonal cuts to the level of the patellar nose. Caliper was used to remeasure the patella and the appropriate sized patellar button, in this case size 38 mm round was felt to be most appropriate. The alignment guide was then put in place. Peg holes were drilled and alignment guide was then removed. Next, the femoral cutting block was placed in the distal aspect of the femur and pinned in place. Next the distal femoral cut was made based off the patients anatomy and MRI patient matched cutting block. Next, a size 7 distal 4-in-1 cutting block was tamped in place then stabilized with pins. Next, the appropriate soft tissue retraction was made and anterior chamfer and posterior chamfer cuts were made with the sagittal saw. Next, the 4-in-1 cutting block was then removed followed by removal of all bone fragments. Next, attention was then directed toward the proximal tibia. Blunt Sang was placed posterior to the tibia to protract it anteriorly and median and lateral sharp Sang retractors were placed. Soft tissue and portion of the menisci were then resected at this time and MRI matched proximal tibial cutting block was then pinned in place and proximal tibial cut was made with sagittal saw. Alignment guide was removed. Pins were removed and the proximal fragment of the tibia was then sharply excised and removed. Next, proximal tibial tray trial size 6 was then pinned in place and this was felt to be well matched for the patients anatomy, pinned in place and keel punch was then utilized with mallet. Keel punch was then removed and cervical laminar bi developer was then placed in the medial compartment. The lateral compartment was then inspected for osteophytes and soft tissue impingement. There was found to be none. I then switched to the lateral compartment and medial compartment was then debrided of any soft tissue impingement. Next the laminar bi developer was removed and the femoral trial, in this case size 7 was then malleted in place, pinned and then femoral notch milling guide was then placed anteriorly. This was then reamed and then punched with sharp punch and mallet. Next, the distal aspect of the femur was then inserted in notch guide and size 9 mm posterior stabilized polyethylene was inserted, reduced. Patellar button was then placed in trial and range of motion was performed. Next after range of motion and stability test was performed the implants were found to be appropriate size. Trials were all removed. The posterior capsule was injected with Orthomix. Next the joint was then cleansed with pulsatile lavage using approximately 3 liters normal saline with Ancef additive. Next all bony surfaces were suctioned and drained and standard cementing technique was performed with Palacos R and all excess cement was then removed from around the implant site. A 9 mm posterior stabilized polyethylene bearing was implanted and checked for stability. The patellar button was then cemented in place and held in place with patellar clamp. Next, double lumen 10 Luxem[place]ger Hemovac drain was then placed and exiting anterolaterally and the capsule was closed using interrupted #1 Vicryl sutures. The dermis was closed using buried interrupted 2-0 Vicryl and the skin closed with skin hari. A sterile compressive dressing was applied from the toes to the groin and overwrapped with Tee wrap. Tourniquet was released. The patient was awakened and taken to recovery in stable condition. Job ID: [id number] [facility]
--- NOTE | 2021-01-05 16:08 | XRay Report ---
XR knee LT 1 or 2V routine CLINICAL HISTORY: Postoperative evaluation. COMPARISON: None FINDINGS: Alignment of the total left knee arthroplasty is anatomic. There is no periprosthetic frac ture. There are no unexpected radiopaque foreign bodies. Drains and skin hari are present. IMPRESSION: Expected findings following total left knee arthroplasty. ACT 112: Negative or not required by law. Electronically signed by: Xavier Tyson M.D. 01/05/2021 4:07 PM
--- NOTE | 2021-01-05 16:23 | Anesthesiology Progress Note ---
Date of Service January 05, 2021 Anesthesia Post Procedure Vital Signs Vital Signs: Temp Pulse Pulse Resp BP Pulse Ox 01/05/21 16:20 36.9 C 65 13 165/75 H 95 01/05/21 16:10 64 14 174/79 H 95 01/05/21 16:00 64 15 163/80 H 96 01/05/21 15:50 60 12 163/72 H 95 01/05/21 15:42 37.1 C 70 11 L 176/73 H 97 01/05/21 11:22 36.8 C 69 20 182/96 H 94 Transfer of Care Handoff Completed per policy Notes Mental Status: alert / awake / arousable Patient Amnestic to Procedure: Yes Nausea / Vomiting: adequately controlled Pain: adequately controlled Airway Patency, RR, SpO2: stable & adequate BP & HR: stable & adequate Hydration State: stable & adequate Anesthetic Complications: no major complications apparent and Pt Satisfied with anesthetic care
[2021-01-05] MEDS ORDERED: PHARMACY GLYCEMIC MGMT CONSULT PRN (16:49)
[2021-01-05] MEDS ORDERED: diphenhydrAMINE Capsule 25 MG CAP PO PRN (16:56)
[2021-01-05] MEDS ORDERED: bisacodyL 10 MG SUPP PR PRN (16:56)
[2021-01-05] MEDS ORDERED: HYDROmorphone INJ 0.5 MG/0.5 ML SYR IV PRN (16:56)
[2021-01-05] MEDS ORDERED: METOCLOPRAMIDE HCL INJ 5 MG/ML 2 ML VIAL IV PRN (16:56)
[2021-01-05] MEDS ORDERED: TAMSULOSIN HCL 0.4 MG CAP PO PRN (16:56)
[2021-01-05] MEDS ORDERED: KETOROLAC TROMETHAMINE 15 MG/ML VIAL IV PRN (16:56)
[2021-01-05] MEDS ORDERED: NALOXONE HCL 0.4 MG/1 ML VIAL/CARP IV PRN (16:56)
[2021-01-05] MEDS ORDERED: oxyCODONE HCL IR 5 MG TAB (IMMEDIATE RELEASE) PO PRN (16:56)
[2021-01-05] MEDS ORDERED: MAGNESIUM HYDROXIDE SUSP 30 ML UDC PO PRN (16:56)
[2021-01-05] MEDS ORDERED: ALUMINUM/MAGNESIUM SUSP 30 ML UDC PO PRN (16:56)
[2021-01-05] MEDS ORDERED: CARBOHYDRATES FOR HYPOGLYCEMIA PO PRN (17:00)
[2021-01-05] MEDS ORDERED: GLUCOSE 10 TABS/TUBE PO PRN (17:00)
[2021-01-05] MEDS ORDERED: GLUCOSE 40% GEL 15 GM TUBE PO PRN (17:00)
[2021-01-05] MEDS ORDERED: GLUCAGON FOR INJ 1 MG VIAL IM PRN (17:00)
[2021-01-05] MEDS ORDERED: DEXTROSE 50% 50 ML SYRINGE IV PRN (17:00)
[2021-01-05] MEDS: SODIUM CHLORIDE 0.9% 1000ML 1,000 ML IV SCH (17:15)
--- NOTE | 2021-01-05 17:31 | Hospitalist Consultation ---
Date of Consultation January 05, 2021 Assessment & Plan (1) Status post total left knee replacement: - Pain management, bowel regimen and DVT ppx asa 81 mg BID per the primary team - PT/OT consults, pt is planning on outpatient therapy - Follow am CBC to monitor for acute blood loss, Hgb was 14.9 preoperatively - Currently on 3 L via NC, any respiratory complaints, O2 sats are 93%. Remote history of smoking many years ago x7 to 8 years. Not currently on any inhalers or O2 at baseline. (2) Hypertension: -Continue lisinopril 20 mg daily, baby aspirin daily at home, continue 81 mg twice a day for DVT prophylaxis per primary team. (3) Hyperlipidemia: -Continue atorvastatin 80 mg daily (4) Diabetes mellitus, type 2: -Holding metformin -ISS with Accu-Cheks AC at bedtime -Glycemic pharmacy on consult already (5) GERD (gastroesophageal reflux disease): -Continue omeprazole (6) Obesity: -BMI 38.6, diet and exercise to be encouraged throughout hospital stay DVT PPx: - teds, scds, aspirin BID CODE: Full Code Dispo: From home, likely to remain in the hospital x 1-2 days Supervising Physician Co-Signing Physician Notes Attending addendum: Patient recovering well from postop knee surgery, Pain is well controlled, no complaint of shortness of breath no cough no chest pain, No fever or chills Do not dizziness spell or lightheadedness Already been able to be out of bed Continue orthopedic recommendations for PT OT Sherron Jackson MD History of Present Illness Reason for Consultation: Medical management Requesting Physician: Dr. Lazo Attending Physician: Greg Lazo DO History of Present Illness This is a 65-year-old male with PMHx of HTN, HLD, DM type II, obesity with BMI of 38.6, osteoarthritis and GERD who presents for an elective total left knee ar throplasty by Dr. Lazo on 01/05/2021. The patient is doing well status post surgery, he feels tired and has been trying to sleep since getting up to the floor. He denies any acute complaints. He is still numb and cannot feel me touching his left toes on exam, but is able to move them without difficulty. Last bowel movement was this morning, has not trialed p.o. intake since getting to the floor. He lives at home with his and plans on doing PT/OT upon discharge from the hospital. He had previously had his right knee replaced by a different physician several years ago. Patient also notes that he used to smoke, many years ago, for 7 to 8 years. Denies any alcohol use. Denies any other acute complaints. Allergies Allergy/AdvReac Type Severity Reaction Status Date / Time No Known Drug Allergies Allergy Unknown none Verified 12/11/20 09:45 Home Medications Medication Instructions Recorded Confirmed Type atorvastatin 80 mg tablet 80 mg PO PM 12/11/20 01/05/21 History lisinopril 20 mg tablet 20 mg PO QAM 12/11/20 01/05/21 History metformin 500 mg tablet 500 mg PO BID 12/11/20 01/05/21 History omeprazole 20 mg tablet,delayed 20 mg PO BID 12/11/20 01/05/21 History release acetaminophen 500 mg tablet 1,000 mg PO Q8 14 Days #84 tab 01/06/21 Rx (Tylenol Extra Strength) aspirin 81 mg tablet,delayed 81 mg PO BID 30 Days #60 tab 01/06/21 Rx release oxycodone 5 mg tablet 5 mg PO Q4H PRN #30 tab MDD 6 01/06/21 Rx polyethylene glycol 3350 17 gram 17 g PO DAILY PRN #5 ea 01/06/21 Rx oral powder packet (Miralax) Patient History Medical History (Updated 01/05/21 @ 17:28 by Isabella Cota PA-C) Diabetes mellitus, type 2 NIDDM GERD (gastroesophageal reflux disease) controlled Hyperlipidemia Hypertension Obesity Osteoarthritis Surgical History (Updated 01/05/21 @ 17:28 by Isabella Cota PA-C) History of lumbar fusion History of total right knee replacement Right TKA (01/08/18): unable to get SAB d/t hardware around spine despite multiple attempts (attempted spinal at L3-L4, L4-L5, median and paramedian >unable to pass through hardware, pt s/p fusion T12-L5) > LMA#5 x1 attempt, atraumatic, good seal at [facility] Hx of colonoscopy Hx of esophagogastroduodenoscopy Hx of tonsillectomy Social History Smoking Status: Never smoker Second Hand Exposure: No; Do You Dip or Chew Tobacco: No; Tobacco Cessation Education Requested by Patient: No Hx Alcohol Use: No Hx Substance Use: No Preferred Language: Spanish Communication Ability: Effective Chair Lift Operator Required: No Beliefs That Will Affect Care: None Current Living Situation: Spouse Other Information That Helps Us Care for You: No Feels Safe at Home: Yes Safety Concerns: Feels Safe At This Time Assistive Devices: Denture - Upper, Denture - Lower, Glasses and Walker Review of Systems Review of Systems: Constitutional: No fever, sweats or chills Eyes: No diplopia, no worsening or blurred vision ENT: normal hearing, no trouble swallowing Respiratory: No cough, sputum, dyspnea at rest or on exertion Cardiovascular: No chest pain, tightness or palpitations Abdomen: No pain, nausea, vomiting, diarrhea or constipation Musculoskeletal: No joint pain, calf pain, swelling Neurologic: No weakness, + as per HPI, numbness/tingling in left foot/toes, or balance problems Psychiatric: No anxiety or depression Skin: No rash or itch Physical Exam Physical Exam: General: awake, alert, no apparent distress, obese with BMI 38.6 Head: Normocephalic, atraumatic ENT: PERRL, EOMI, no pharyngeal exudate, mucous membranes moist Chest: Clear to auscultation, on 3L via NC with O2 sat 93%, no adventitious breath sounds Cardiac: Regular rate and rhythm, no murmur, no JVD, normal peripheral pulses, good capillary refill Abdominal: NABS x 4 quadrants, abdominally obese, soft, nondistended, nontender to palpation, no rebound or guarding Extremities: Left knee Tee wrap, dressing C/D/I, Hemovac drain in place, ice pack on knee, otherwise normal inspection, no peripheral edema or erythema, calfs nontender to palpation Psych: Normal mood and affect Neuro: AAO x 3, strength intact bilaterally and rated 5/5, no motor deficits, speech is clear, no peripheral sensory deficits Results & Data Results & Data ([facility]) Vital Signs (Past 12 Hours) Vital Signs Temp Pulse Pulse Resp BP Pulse Ox 01/05/21 16:30 36.9 C 66 17 164/83 H 94 01/05/21 16:20 36.9 C 65 13 165/75 H 95 01/05/21 16:10 64 14 174/79 H 95 01/05/21 16:00 64 15 163/80 H 96 0723/21 15:50 60 12 163/72 H 95 01/05/21 15:42 37.1 C 70 11 L 176/73 H 97 01/05/21 11:22 36.8 C 69 20 182/96 H 94
[2021-01-05] MEDS ORDERED: LANTUS PER UNIT CHARGE SQ ONE (17:45)
[2021-01-05] MEDS: INSULIN ASPART 100 UNITS/ML 3 ML PEN SC SCH ×2 (18:11→20:44)
--- NOTE | 2021-01-05 19:19 | Pharmacy Report ---
Pharmacy Glycemic Short Note 2 - Date of Service January 05, 2021 - Glycemic Short BSG Results (Last 24 hours): 01/05/21 01/05/21 11:20 17:20 POC Glucose 129 H 187 H OUTPATIENT ANTIDIABETIC REGIMEN: * Metformin 500 mg PO BIDM * HbA1c: 6.5% (12/12/20) ASSESSMENT: * MS is a 65 year old male POD #0 s/p left total knee arthroplasty * Intra-articular ortho-mix containing dexamethasone administered in OR * Postop BSG of 187 mg/dL * Will give one-time 15 unit Lantus dose to help cover steroid (~0.15 unit/kg) PLAN FOR INPATIENT GLYCEMIC CONTROL: * Hold outpatient oral diabetes medications * Consider restarting tomorrow morning * Basal insulin * Lantus 15 units SC x 1 postop * Bolus insulin * NovoLog per scale ACHS or Q6hrs while NPO * Goal Range: Low 110 mg/dL - High 140 mg/dL * Correction Factor: 20 mg/dL/unit * Nutritional / Prandial insulin per carb ratio of 1 unit per 7 grams CHO consumed PLAN FOR DISCHARGE: * HbA1c of 6.5% suggests excellent outpatient glycemic control * Continue metformin 500 mg PO BIDM at discharge
[2021-01-05] MEDS: ceFAZolin 2000MG 2,000 MG/15 ML SYR IV SCH (20:37)
[2021-01-05] MEDS: NABUMETONE 500 MG TABLET PO SCH (20:40)
[2021-01-05] MEDS: ASPIRIN 81 MG ECTAB PO SCH (20:40)
[2021-01-05] MEDS: DOCUSATE SODIUM 100 MG CAP PO SCH (20:40)
[2021-01-05] MEDS: PANTOprazole 40 MG TAB PO SCH (20:41)
[2021-01-05] MEDS: ACETAMINOPHEN 500 MG TAB PO SCH (20:49)
[2021-01-05] MEDS ORDERED: ATORVASTATIN 40 MG TAB PO SCH (21:00)
[2021-01-05] MEDS ORDERED: metFORMIN HCL 500 MG TAB PO SCH (21:00)
[2021-01-05] MEDS ORDERED: SENNA 8.6 MG TAB PO SCH (21:00)
[2021-01-05] MEDS ORDERED: TRANEXAMIC ACID / 0.7% NACL 1,000 MG/100 ML BAG IV SCH (21:45)
[2021-01-06] MEDS ORDERED: INSULIN ASPART 100 UNITS/ML 3 ML PEN SC SCH (02:00)
[2021-01-06] MEDS: SODIUM CHLORIDE 0.9% 1000ML 1,000 ML IV SCH (03:25)
[2021-01-06] MEDS: ACETAMINOPHEN 500 MG TAB PO SCH ×2 (05:31→13:28)
[2021-01-06] MEDS: ceFAZolin 2000MG 2,000 MG/15 ML SYR IV SCH (05:31)
[2021-01-06] MEDS ORDERED: metFORMIN HCL 500 MG TAB PO SCH (08:00)
[2021-01-06] MEDS ORDERED: lisinopril 20 MG TAB PO SCH (09:00)
[2021-01-06] MEDS ORDERED: MULTIVITAMIN TAB PO SCH (09:00)
[2021-01-06] MEDS: ASPIRIN 81 MG ECTAB PO SCH (09:04)
[2021-01-06] MEDS: NABUMETONE 500 MG TABLET PO SCH (09:05)
[2021-01-06] MEDS: DOCUSATE SODIUM 100 MG CAP PO SCH (09:05)
[2021-01-06] MEDS: PANTOprazole 40 MG TAB PO SCH (09:05)
--- NOTE | 2021-01-06 09:35 | Orthopedic Progress Note ---
Date of Service January 06, 2021 Assessment & Plan (1) Osteoarthritis of left knee: Plan: Postop day 1 status post left total knee arthroplasty. PT/OT protocols. Weightbearing as tolerated. DVT prophylaxis-aspirin p.o. twice daily, SCDs, MARISA hughes. Pain management as written. Labs pending. DC planning-patient is planning for home health services upon discharge. Admission and Anticipated Discharge Date Admission Date: January 05, 2021 Subjective Postop day 1 Patient sitting in his chair at the bedside eating breakfast. No complaints this morning. Pain is controlled. Denies shortness of breath, chest pain, lightheadedness. Physical Exam Physical Exam: Dressings are clean, dry, and intact. Calves are soft nontender. Neurovascular is intact. Toes are mobile. He has good dorsiflexion and plantarflexion of the left foot. He has had a total of 350 mL from his Hemovac from the previous shift. Results & Data ([facility]) Vital Signs (Past 12 Hours) Vital Signs Temp Pulse Resp BP BP Pulse Ox 01/06/21 07:32 36.6 C 71 17 158/75 H 95 01/06/21 03:19 36.6 C 67 20 153/79 H 96 01/05/21 22:44 36.6 C 74 18 163/87 H 94
--- NOTE | 2021-01-06 10:13 | Hospitalist Progress Note ---
Date of Service January 06, 2021 Assessment & Plan (1) Status post total left knee replacement: Plan: Operative day 1, recovering very well postoperatively A.m. labs pending, patient appears to be a difficult stick, Repeat attempt from lab draw was done, blood work shows leukocytosis with white count of 19 K, positive secondary to postop status, no evidence of any fever chills or infection Patient will have a repeat lab draw early next week at his family physician yordan [place] at [facility] No hypoxia, no shortness of breath Appreciate input from orthopedics, patient appears to be medically stable to be discharged home, Will be discharged on aspirin 81 mg twice daily per orthopedics post knee surgery guideline - (2) Hypertension: Plan: -Continue lisinopril 20 mg daily, baby aspirin daily at home, continue 81 mg twice a day for DVT prophylaxis per primary team. (3) Hyperlipidemia: Plan: -Continue atorvastatin 80 mg daily (4) Diabetes mellitus, type 2: Plan: Metformin resumed on discharge -Was treated with subcu insulin per protocol during hospital stay (5) GERD (gastroesophageal reflux disease): Plan: -Continue omeprazole (6) Obesity: Plan: -BMI 38.6, diet and exercise to be encouraged throughout hospital stay DVT PPx: - teds, scds, aspirin BID CODE: Full Code Dispo: Per primary team/orthopedics team Admission and Anticipated Discharge Date Admission Date: January 05, 2021 Subjective Patient seen postop for orthopedics consult Doing remarkably well, has been able to walk outside, knee pain much better controlled No fever chills no shortness of breath no dyspnea on exertion Bowel movement yesterday, no nausea vomiting Review of Systems Review of Systems: All systems reviewed & are unremarkable except as noted in Subjective Physical Exam Constitutional: WD/WN, vitals as above Eyes: PERRL, conjunctivae normal, anicteric sclerae ENMT: external ear and nose normal, oropharynx normal Neck: trachea midline, no thyromegaly Respiratory: normal respiratory effort, lungs clear to auscultation Cardiovascular: RRR, no murmur, no edema Gastrointestinal (Abdomen): normal bowel sounds, soft, nontender, no hepatosplenomegaly Musculoskeletal: Status post left knee surgery, drain present, no weakness or paresthesia on left leg or foot, normal strength on the right side Skin: no rashes, warm and dry Neurologic: PERRL, EOMI, accommodation nl, no face palsy, no dysarthria Psychiatric: A+Ox3, euthymic affect Results & Data Results & Data ([facility]) Vital Signs (Past 12 Hours) Vital Signs Temp Pulse Resp BP BP Pulse Ox 01/06/21 07:32 36.6 C 71 17 158/75 H 95 01/06/21 03:19 36.6 C 67 20 153/79 H 96 01/05/21 22:44 36.6 C 74 18 163/87 H 94
[2021-01-06] MEDS: INSULIN ASPART 100 UNITS/ML 3 ML PEN SC SCH ×2 (10:24→13:30)
[2021-01-06 11:18] VITALS: BP 158/78; TEMP 98.2; O2SAT 93
[2021-01-06 11:20] LABS: Hematocrit (blood only) 41.4 % (42-52); Hemoglobin 14.2 g/dL (14.0-18.0); Mean Corpuscular Hemoglobin 29.9 pg (25-34); Mean Corpuscular Volume 87.2 fL (80-100); Mean Platelet Volume 10.5 fL (7.4-10.4); Platelet Count 247 K/uL (130-400); RDW Coefficient of Variation 12.6 % (11.5-14.5); RDW Standard Deviation 40.6 fL (36.4-46.3); Red Blood Count 4.75 M/uL (4.7-6.1); White Blood Count 19.14 K/uL (4.8-10.8)
[2021-01-06 11:24] LABS: Mean Corpuscular Hgb Conc 34.3 g/dL (32-36)
[2021-01-06 11:43] LABS: BUN Creatinine Ratio 20.6 (10-20); Calcium 8.9 mg/dl (8.5-10.1); Est GFR (Non-African American) 76.8 ml/min; Potassium 4.4 mmol/L (3.5-5.1)
[2021-01-06 12:27] VITALS: PULSE 60
--- NOTE | 2021-01-09 09:43 | Discharge Summary ---
Date of Service January 09, 2021 Admission HPI Per Admitting Provider This is a patient who been treated conservatively for left knee osteoarthritis for many years. He is failed all conservative management. He had previously had a right total knee arthroplasty with good results. He is currently being set up for a left total knee arthroplasty. Admission Exam Per Admitting Provider Physical Exam Constitutional: well developed and well nourished; no acute distress ENMT: external ear and nose normal, oropharynx normal Neck: trachea midline, no thyromegaly Respiratory: normal respiratory effort, lungs clear to auscultation Cardiovascular: Rate/Rhythm: regular rate and regular rhythm Gastrointestinal (Abdomen): normal bowel sounds, soft, nontender, no hepatosplenomegaly Musculoskeletal: Knee: + knee ROM with crepitation (Right knee), + joint line tenderness (Right medial lateral joint line) and + Miranda's sign positive (Right); no skin erythema and no ecchymosis Skin: no rashes, warm and dry Trauma: no evidence of skin trauma Neurologic: normal touch/pain/proprioception Psychiatric: A+Ox3, euthymic affect Speech: normal rate/rhythm/volume of speech Lymphatic: no cervical or axillary lymphadenopathy Principal Diagnosis Left knee osteoarthritis Discharge Data Allergies Allergy/AdvReac Type Severity Reaction Status Date / Time No Known Drug Allergies Allergy Unknown none Verified 12/11/20 09:45 Consultations 01/02/21 11:28 Consult Hospitalist Routine Procedures Performed Operation Date: 01/05/21 12:45 Actual Procedures p Left Total Knee Arthroplasty(Left) - Greg Lazo DO Ordered Studies 01/05/21 05:00 US - OR guided needle placemen Routine Hospital Course (1) Osteoarthritis of left knee: Date of Service January 06, 2021 Assessment & Plan (1) Osteoarthritis of left knee: Plan: Postop day 1 status post left total knee arthroplasty. PT/OT protocols. Weightbearing as tolerated. DVT prophylaxis-aspirin p.o. twice daily, MARISA Torres. Pain management as written. Labs pending. (Hgb 14.2) DC planning-patient is planning for home health services upon discharge. Admission and Anticipated Discharge Date Admission Date: January 05, 2021 Subjective Postop day 1 Patient sitting in his chair at the bedside eating breakfast. No complaints this morning. Pain is controlled. Denies shortness of breath, chest pain, lightheadedness. Physical Exam Physical Exam: Dressings are clean, dry, and intact. Calves are soft nontender. Neurovascular is intact. Toes are mobile. He has good dorsiflexion and plantarflexion of the left foot. He has had a total of 350 mL from his Hemovac from the previous shift. Results & Data ([facility]) Vital Signs (Past 12 Hours) Vital Signs Temp Pulse Resp BP BP Pulse Ox 01/06/21 07:32 36.6 C 71 17 158/75 H 95 01/06/21 03:19 36.6 C 67 20 153/79 H 96 01/05/21 22:44 36.6 C 74 18 163/87 H 94 Total Time Total Time Spent Total Time Spent (In Minutes): 5 Discharge Plan Discharge Items Patient Disposition: Home - Home Health Services Reason For Visit: Primary Osteoarthritis Knee Left Discharge Diagnosis: Left knee osteoarthritis Activity: Per Instructions section Weightbearing: Left weightbearing Weightbearing Comment: As tolerated with walker Non-emergency contact: Surgeon Call non-emergency contact if: your pain is not controlled, your pain is worsening and your temperature is above 101 Follow-up/Referrals: Shawn De La Cruz MD [Primary Care Provider] - Diet: Carb Consistent or DM2 Addtl Attending Provider Instructions: ACTIVITY RECOMMENDATIONS: SELF CARE INSTRUCTIONS AFTER TOTAL KNEE REPLACEMENT A. You may need to continue a physical therapy program after discharge from the hospital. There are several options available to you. Your doctor will assist you in selecting the best one for you. 1. An out-patient facility 2 to 3 times a week for therapy or home therapy. 2. Continue working on all exercises taught to you in the hospital. Your goals should be to increase bending of your knee to 90 degrees and beyond and to fully straighten your knee. B. You may progress at your own pace from walking with a walker or crutches to a cane; then to no assistive devices. C. Make walking a part of your daily routine. Be up as much as comfortable with rest periods throughout the day. Rest with leg elevation is very important. Use the ice wrap frequently for the first 3-4 weeks. D. There are no restrictions on activities. You may ride in a car, shop, participate in knockdown worker and all social activities. E. Wear the long elastic stockings (MARISA hose) 20 hours a day for one month after surgery. They can be removed several times a day for laundering and for a bath. F. Silverlon: You have a Silverlon dressing on the right knee incision. It will remain in place for 7 days from the day of your surgery. After 7 days, you may remove the dressing, just as you would remove a bandaid. You may shower with the Silverlon dressing in place. However, if you notice any water within the steven ssing, the dressing should be removed. You may cover the incision with a dry dressing once the silverlon is removed if there is any drainage. SPECIAL CARE INSTRUCTIONS: VERY IMPORTANT TO READ AND REVIEW A. Take Aspirin (blood thinning medications) as directed by your doctor. If on Coumadin, have a pro-time (blood test) drawn according to your doctor's instructions. This will tell the doctor how well the Coumadin is thinning your blood. B. There are a few signs you need to watch for after you are home. Call [facility] if you notice any of the followin. Increased severe knee pain. Some pain is expected especially when you exercise. 2. Increased swelling in your leg or knee; pain or swelling of the calf muscle in either lower leg. 3. Any fluid drainage from the incision. 4. Shortness of breath or chest pain. C. Please call [facility] at if you have any concerns or questions about your operation or recovery. The doctor or his nurse will return your call promptly. D. You must take antibiotics before dental work, bladder, bowel or other surgery. Your doctor will provide you with a permanent care to carry describing this precaution. * CALL IF INCREASED PAIN, REDNESS, DRAINAGE OR FEVER GREATER THAT 101 F. * WEAR MARISA HOSE 20 HOURS PER DAY FOR 4 WEEKS. FOLLOW UP VISIT: If appointment is not already scheduled: Please call [facility] to make a follow-up appointment for 2 weeks after your surgery to have hari removed at . 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 Instructions: Lab work : Basic Metabolic panel , Complete blood on Friday01/08/21 Pending Studies at Discharge: No Stand-Alone Forms: [employer], Smoking Cessation Medications and DC Order Prescriptions: New aspirin 81 mg Tablet,Delayed Release (Dr/Ec) 81 mg PO BID 30 Days Qty: 60 RF: 0 acetaminophen [Tylenol Extra Strength] 500 mg Tablet 1,000 mg PO Q8 14 Days Qty: 84 RF: 0 polyethylene glycol 3350 [Miralax] 17 gram powder in packet 17 g PO DAILY PRN (Reason: constipation) Qty: 5 RF: 0 oxycodone 5 mg Tablet 5 mg PO Q4H MDD 6 PRN (Reason: pain) Qty: 30 RF: 0 Continued metformin 500 mg Tablet 500 mg PO BID RF: 0 atorvastatin 80 mg Tablet 80 mg PO PM RF: 0 lisinopril 20 mg Tablet 20 mg PO QAM RF: 0 omeprazole 20 mg Tablet,Delayed Release (Dr/Ec) 20 mg PO BID RF: 0 Discontinued aspirin [Aspir-81] 81 mg Tablet,Delayed Release (Dr/Ec) 81 mg PO QAM RF: 0 nabumetone [Relafen] 500 mg Tablet 500 mg PO BID RF: 0 Discharge Orders: Discharge Order (Routine); Ordered 01/06/21 Ordered By: Clement Dowell/Other Patient Handouts: Total Knee Replacement, Understanding Knee Replacement, After Knee Replacement: Back at Home, Knee Replace First Month Admission Data Admit Date/Time: 01/05/21 12:25 Attending Provider: Greg Lazo Admit Provider: Greg Lazo Primary Care Provider: Shawn De La Cruz Other Providers: Dheeraj Marcial Ayesha H. ; [facility],Home Health Other Interventions: Discharge Summary Assessment (RN) Last Done: 01/06/21 12:17
== END 2021-01-06 14:10 | disposition home health service (06) | DRG 470 ==
LOC: 3N 10:44 → ASU 10:44 → OBSVTOIN 12:25